=== PATIENT | male | born 1965 | race Caucasian/White ===

== ENCOUNTER → 2019-07-21 | Day surgery (SDC) | payer MEDICAID ==
[~2019-07-21] MED LIST: ASPIR 8181 M1 PO; CHLORTHALIDONE25 MG PO; DULERA 200 MCG/13 GM INH; IPRAT-ALBUT 0.5-3 ML INH; LIPITOR80 MG PO; METFORMIN HCL500 M3 PO; NEURONTIN 300M300 M2 PO; NORCO 5-325 TA1 EAC1 PO; PROMETHAZI6.25 MG/5 PO; PROMETHAZINE-D473 M1 PO; PROZAC40 MG PO; REQUIP 1 MG TABL1 M1 PO; VENTOLIN HFA 1818 GM INH
[2019-07-21 09:53] LABS: HEMATOCRIT 43.1 % (42.0-52.0); HEMOGLOBIN 15.1 gm/dL (14.0-18.0); MCH 30.1 pg (26.0-34.0); MPV 7.6 fl. (7.2-11.1); RBC 5.01 mil/uL (4.50-6.00); WBC 8.9 thou/uL (4.0-11.0)
[2019-07-21 10:13] LABS: CALCIUM 8.4 mg/dL (8.5-10.1); POTASSIUM 3.6 mmol/L (3.5-5.1)
--- NOTE | 2019-07-21 10:27 | EKG ---
[place] [address] ELECTROCARDIOGRAM REPORT Name: ISAAC RAMIRES Room: [facility]#: [id number] Admission: 07/21/19 Attend Phys: Calvin Truong II Discharge: Date of : 65 Report #: [id number] THIS REPORT FOR: //name// [facility] Test Date: 2019-07-21 Test Time: 09:36:25 Pat Name: ISAAC RAMIRES Department: Room: Gender: M Director [employer]: : 1965 Requested By: Calvin Truong Order Number: [id number] Reading MD: Robinson Paul Measurements Intervals [place] Rate: 70 P: 55 ND: 133 QRS: -34 QRSD: 96 T: 16 QT: 433 QTc: 468 Interpretive Statements Sinus rhythm septal q waves Left axis deviation Borderline T abnormalities, inferior leads No previous ECG available for comparison Electronically Signed On 07-21-2019 10:26:23 TECHNICAL PRODUCT MANAGER by Robinson Paul [email or web address] <ELECTRONICALLY SIGNED> By: Robinson Paul MD, [facility] 07/21/19 1026 0936 0936 Robinson Paul MD, FACC /EPI
--- NOTE | 2019-07-27 08:38 | OP ---
[address] [address] OPERATIVE REPORT Name: ISAAC RAMIRES Room: [facility]#: [id number] Admission: 07/21/19 Attend Phys: Calvin Truong II Discharge: Date of : 65 Report #: [id number] THIS REPORT FOR: //name// CC: Suzi Truong DATE OF SERVICE: 07/21/2019 PREOPERATIVE DIAGNOSIS: Left first carpometacarpal arthritis. POSTOPERATIVE DIAGNOSIS: Left first carpometacarpal arthritis. PROCEDURE: Left first carpometacarpal joint arthroplasty. SURGEON: Calvin Truong II, DO HEAVY DUTY MECHANIC: NAHUM Goldberg. ANESTHESIA: [place] block with sedation. ESTIMATED BLOOD LOSS: Minimal. ANTIBIOTICS: Per operative record. DRAINS: None. COMPLICATIONS: None. CONDITION OF THE PATIENT: Stable to recovery room. IMPLANTS USED: 0.062 K wires x 2 with a Jurgan ball and gracilis allograft. DESCRIPTION OF PROCEDURE: The patient was taken to the operative suite and placed supine on the operating table, given appropriate anesthesia. The patient had a well-padded tourniquet applied to the upper arm, which [place] block was placed by anesthesia and this remained inflated for 57 minutes throughout the procedure. The arm was sterilely prepped and draped. Surgery began by evaluation with the C-arm over the base of the first metacarpal at the carpometacarpal joint. This was located and incision was then made to subcutaneous tissues down to the capsule. Careful retraction was performed around the tendons in this area and the capsule was opened maintaining the capsular integrity around the trapezium. This bone was then selected and cut utilizing the micro oscillating saw taken out with ena. Wound was then irrigated and the C-arm was utilized to verify removal of all bone fragments. The gracilis tendon was then taken with #2 FiberWire and woven into a small anchovy, which was then introduced into the wound and [place] [address] OPERATIVE REPORT Name: ISAAC RAMIRES Room: [facility]#: [id number] Admission: 07/21/19 Attend Phys: Calvin Truong II Discharge: Date of : 65 Report #: [id number] a stitch. It was then oversewn with #1 Vicryl to close down the capsule. The first metacarpal was then pinned with the second metacarpal with two 0.062 wires. These were then clipped and Jurgan balls were applied with the thumb in anatomic position. The wound was then irrigated again and closed with a 2-0 Vicryl and running Monocryl stitch. Dermabond and sterile dressing with thumb spica splint were applied. The patient transported to recovery room in stable condition. Counts were correct throughout the procedure. <ELECTRONICALLY SIGNED> [place]: [place] [id number] Truong II, DO /nt
== END | disposition home or self-care (01) ==
LOC: M.SUR 07:50
PROVIDERS: Orthopaedic Surgery
DX: M18.12 Unilateral primary osteoarthritis of first carpometacarpal joint, left hand (principal); I11.0 Hypertensive heart disease with heart failure; I50.9 Heart failure, unspecified; E11.9 Type 2 diabetes mellitus without complications; I25.2 Old myocardial infarction; J44.9 Chronic obstructive pulmonary disease, unspecified; F32.9 Major depressive disorder, single episode, unspecified; G47.30 Sleep apnea, unspecified; G43.909 Migraine, unspecified, not intractable, without status migrainosus; K21.9 Gastro-esophageal reflux disease without esophagitis; F17.210 Nicotine dependence, cigarettes, uncomplicated; Z98.890 Other specified postprocedural states; Z79.899 Other long term (current) drug therapy; Z79.82 Long term (current) use of aspirin; Z88.8 Allergy status to other drugs, medicaments and biological substances